=== PATIENT | male | born 1970 | race African-American/Black ===

== ENCOUNTER 2016-08-05 01:53 | Emergency (ER) | payer MEDICARE ==
--- NOTE | ~2016-08-05 | CT114 ---
[facility] A Service [facility] RADIOLOGY TEXT RESULTS PATIENT: AVI HOPPER LOCATION: [facility] : [birth year] UNIT #: [id number] AGE: [address]: Rob Chakraborty MD SEX: M ORDER DR: [id number] [address] [address] [id number] MR#: [id number] Acc #: [id number] NAME: AVI HOPPER : 1970 SEX: M STUDY DATE/TIME: 08/05/2016 6:57 UNIT: [facility] ROOM: STUDY DESCRIPTION: CT Soft Tissue Neck W Cont Attending Physician: Rob Chakraborty M.D. Ordering Physician: Yehuda Craft Aprn MEDICAL IMAGING REPORT This report is preliminary unless electronic signature is present EXAM CT neck INDICATION Bug bite on the right side of the neck. Right-sided neck swelling for [address] of the neck soft tissue utilizing 75 mL Isovue-370 IV contrast. Coronal and sagittal reconstructions were obtained. This CT exam was performed with one or more of the following radiation dose reduction techniques: automatic exposure control, adjustment of mA and/or kV according to patient size, and iterative reconstruction. COMPARISON CTA head and neck dated 01/03/2012. FINDINGS There is no inflammation in the superficial soft tissues. No significant skin thickening to correlate with the patient's clinical appearance. No pathologically enlarged cervical lymph nodes. There is a small sialolith in the right parotid gland. No parotid inflammation. Submandibular glands are within normal limits. Vasculature of the neck is within normal limits. The thyroid gland is homogeneous. There are some mild small mucous retention cysts in the inferior aspect of both maxillary sinuses. No acute osseous abnormalities. [facility] A Service [facility] RADIOLOGY TEXT RESULTS PATIENT: AVI HOPPER LOCATION: [facility] : [birth year] UNIT #: [id number] AGE: [address]: Rob Chakraborty MD SEX: M ORDER DR: IMPRESSION 1. No evidence of significant inflammation or superficial fluid collection in the region of the patient's clinical concern. 2. No enlarged cervical lymph nodes. Dictated by... Chuy Rg M.D. THIS IS AN ELECTRONICALLY VERIFIED REPORT Chuy Rg M.D. at 08/06/2016 8:01 AM Mirela TD: 08/05/2016 11:24 JOB #: [id number] MEDICAL IMAGING REPORT Page 1 of 1 COPY
[~2016-08-05 01:53] MED LIST: ACETAMINOPHEN650 M4 PO; AMARYL2 MG PO; AMITRYPTYLINE PO; AMLODIPINE BESYL5 MG PO; ANTIVERT PO; APRESOLINE10 M1 PO; ASPIRIN EC81 M1 PO; ASPIRIN PO; ASPIRIN81 M1; ASPIRIN81 M2 PO; ASPIRIN81 MG PO; AVALIDE 150-12.1 TAB PO; BP MEDS; CHEWABLE ASPIRI81 MG PO; CIPRO PO; COLACE PO; COZAAR PO; COZAAR100 MG PO; EUCERIN CREME454 GM TP; FLEXERIL PO; FLEXERIL10 MG PO; GLUCOPHAGE500 M1 PO; GLUCOPHAGE500 MG PO; HUMALOG MIX 75/10 ML SUBQ; HUMULIN 70100 UNITS/ INJ; HYDRALAZINE HCL25 MG PO; HYDRALAZINE HCL50 MG PO; HYDROCODON-ACE1 EAC5 PO; IBUPROFEN PO; ISORDIL40 MG PO; KETOPROFEN PO; LEVAQUIN750 M1 PO; LIPITOR20 MG PO; LISINOPRIL PO; LISINOPRIL20 MG PO; LOPRESSOR PO; METFORMIN HCL500 M1 PO; METFORMIN PO; METOPROLOL SUCC50 MG PO; METOPROLOL TAR25 MG PO; MILK OF MAGNESIA PO; NEURONTIN PO; NEURONTIN300 MG PO; NEURONTIN600 MG PO; NORCO 10/3251 TAB PO; NORCO 5/325 TAB1 TAB PO; NORVASC PO; ORUDIS75 M1 PO; OUT OF MEDS; PHENERGAN25 M1 PO; PREDNISONE PO; PYRIDIUM PO; ROBITUSSIN A-C S5 ML PO; ROBITUSSIN-DM120 ML PO; VICODIN PO; ZESTORETIC 20/11 TAB PO; ZOCOR PO; ZOCOR20 MG PO; [UNRECOGNIZED DRUG - REMARK]
[2016-08-05 06:16] LABS: BASOPHIL% 0.3 % (0-2.5); EOSINOPHIL# 0.5 X10e3 (0-0.7); EOSINOPHIL% 6.8 % (0.0-7.0); HEMATOCRIT 37.4 % (38.0-50.0); HEMOGLOBIN 11.9 gm/dL (13.0-16.0); LYMPHOCYTE% 38.3 % (17.0-45.0); MEAN CELL VOLUME 88.9 FL (83-96); MEAN CORPUSCULAR HEMOGLOBIN 28.2 PG (28-34); MEAN CORPUSCULAR HGB CONC 31.8 g/dL (30-36); MEAN PLATELET VOLUME 9.2 FL (6.5-11.5); MONOCYTE# 0.9 X10e3 (0-1.0); MONOCYTE% 11.4 % (3.0-12.0); NEUTROPHIL# 3.4 X10e3 (1.5-7.1); NEUTROPHIL% 43.2 % (40-75); PLATELET COUNT 206 X10e3 (140-420); RED BLOOD COUNT 4.21 X10e (3.90-5.60); RED CELL DISTRIBUTION WIDTH 12.8 % (11.0-15.5); WHITE BLOOD COUNT 7.8 X10e3 (4.0-10.5)
[2016-08-05 06:27] LABS: DIFF IND NO
[2016-08-05 06:37] LABS: ALBUMIN SERUM 3.4 g/dL (3.5-5.0); BILIRUBIN,TOTAL 0.8 mg/dL (0.2-2.0); CALCIUM SERUM 9.3 mg/dL (8.4-10.2); GLOM FILT RATE Estimated 102.7 mL/min (>60); POTASSIUM 4.1 mmol/L (3.5-5.1); PROTEIN TOTAL SERUM 8.1 g/dL (6.0-8.3)
== END 2016-08-05 08:54 | disposition home or self-care (01) ==
LOC: CED 01:53
PROVIDERS: Nurse Practitioner Family
DX: S10.96XA Insect bite of unspecified part of neck, initial encounter (principal); R59.1 Generalized enlarged lymph nodes; I10 Essential (primary) hypertension; E11.40 Type 2 diabetes mellitus with diabetic neuropathy, unspecified; Z88.8 Allergy status to other drugs, medicaments and biological substances; W57.XXXA Bitten or stung by nonvenomous insect and other nonvenomous arthropods, initial encounter; Y92.89 Other specified places as the place of occurrence of the external cause
CPT/HCPCS: 36415; 70491; 80053; 82947; 85025; 99284; Q9967

== ENCOUNTER 2016-09-14 21:57 | Inpatient (IN) | payer MEDICARE ==
--- NOTE | ~2016-09-14 | MR134 ---
[facility] A Service of [facility] RADIOLOGY TEXT RESULTS PATIENT: AVI HOPPER LOCATION: [facility] 323-01 : [birth year] UNIT #: [id number] AGE: [address]: Ambrosio Benoit MD SEX: M ORDER DR: [id number] [id number] [facility] [place] [facility]. [place], [place] [address] [id number] I MR#: [id number] Acc #: [id number] NAME: AVI HPOPER : 1970 SEX: M STUDY DATE/TIME: 09/15/2016 21:45 UNIT: [address] ROOM: [facility] STUDY DESCRIPTION: MR MRA Neck Wo Contrast Attending Physician: Ambrosio Benoit M.D. Ordering Physician: Millie Balbuena M.D. Primary Care Physician: Primary Care Physician No MRI CENTER REPORT This report is preliminary unless electronic signature is present. EXAM MRA neck INDICATION Blurred vision, headaches, slurred speech, dizziness for 2 days. FINDINGS 2-D and 3-D [id number] acquisition was used to generate angiographic images of the neck. The common carotid arteries, carotid bifurcations and internal carotid arteries have a normal appearance. The vertebral arteries are symmetric and normal in appearance. NASCET criteria was utilized. IMPRESSION Normal MRA of the neck. Dictated by... Preet Dodd M.D. THIS IS AN ELECTRONICALLY VERIFIED REPORT Preet Dodd M.D. at 09/16/2016 5:49 AM TONIA/namita TD: 09/16/2016 02:44 JOB #: [id number] MRI CENTER REPORT Page 1 of 1 COPY
--- NOTE | ~2016-09-14 | CT71 ---
[facility] A Service of [facility] RADIOLOGY TEXT RESULTS PATIENT: AVI HOPPER LOCATION: [facility] : 66 UNIT #: [id number] AGE: [address]: Ambrosio Benoit MD SEX: M ORDER DR: [id number] [id number] [place], [place] [address] [id number] I MR#: [id number] Acc #: [id number] NAME: AVI HOPPER : 1970 SEX: M STUDY DATE/TIME: 09/14/2016 22:38 [facility] ROOM: 323 STUDY DESCRIPTION: CT Head Wo Contrast Attending Physician: Ambrosio Benoit M.D. Ordering Physician: Gareth Garcia M.D. Primary Care Physician: Primary Care Physician No MEDICAL IMAGING REPORT This report is preliminary unless electronic signature is present EXAM CT scan of the head without contrast HISTORY Blurred vision right eye, headache, slurred speech, dizziness for 2 days. COMPARISON 02/25/2015 TECHNIQUE Unenhanced images were obtained through the brain. This CT exam was performed with one or more of the following radiation dose reduction techniques: automatic exposure control, adjustment of mA and/or kV according to patient size, and iterative reconstruction. FINDINGS There is encephalomalacia involving the medial posterior left cerebral hemisphere consistent with a posterior cerebral artery infarct. This measures about 3.5 cm in diameter. There is also an area of low density in the posterior left cerebellum measuring 3.5 cm in diameter consistent with old infarct. The ventricles and subarachnoid spaces are otherwise normal. These abnormalities were present on the old exam. IMPRESSION Stable areas of old ischemic change involving the left occipital lobe and left posterior cerebellum. No acute abnormalities are identified. Dictated by... Preet Dodd M.D. THIS IS AN ELECTRONICALLY VERIFIED REPORT [facility] A Service of [facility] & [facility] RADIOLOGY TEXT RESULTS PATIENT: AVI HOPPER LOCATION: [facility] : [birth year] UNIT #: [id number] AGE: [address]: Ambrsoio Benoit MD SEX: M ORDER DR: Preet Dodd M.D. at 09/15/2016 1:43 PM TONIA/joaquin TD: 09/15/2016 12:46 JOB #: [id number] MEDICAL IMAGING REPORT Page 1 of 1 COPY
--- NOTE | ~2016-09-14 | MR122 ---
[facility] A Service [facility] RADIOLOGY TEXT RESULTS PATIENT: AVI HOPPER LOCATION: [facility] 323- : [birth year] UNIT #: [id number] AGE: [address]: Ambrosio Benoit MD SEX: M ORDER DR: [id number] [address] [facility]. [place], [place] [address] [id number] I MR#: [id number] Acc #: [id number] NAME: AVI HOPPER : 1970 SEX: M STUDY DATE/TIME: 09/15/2016 21:45 UNIT: [address] ROOM: [facility] STUDY DESCRIPTION: MR MRA Head Wo Contrast Attending Physician: Ambrosio Benoit M.D. Ordering Physician: Millie Balbuena M.D. Primary Care Physician: Primary Care Physician No MRI CENTER REPORT This report is preliminary unless electronic signature is present. EXAM MRA of the brain INDICATION Blurred vision in the right eye with headache, slurred speech and dizziness for 2 days. 3-D [id number]-si-[id number] was used to generate angiographic images of the brain. FINDINGS The distal vertebral arteries and basilar artery appear normal. The right posterior cerebral artery appears normal. On the left side, there is a prominent superior cerebellar artery which appears to have multiple areas of stenosis and there are some distal stenoses in the posterior cerebral artery. The MRI today shows old ischemic change in the left occipital region and left cerebellum. The distal internal carotid arteries, middle cerebral arteries and anterior cerebral arteries are normal in appearance except for an absence A1 signal on the right. An anterior communicating artery is present. IMPRESSION 1. There appear to be multiple stenoses in the left posterior cerebral artery and left superior cerebellar artery which corresponds with areas of old ischemic change seen on MRI. 2. The anterior circulation is unremarkable. Dictated by... Preet Dodd M.D. THIS IS AN ELECTRONICALLY VERIFIED REPORT Preet Dodd M.D. at 09/16/2016 5:49 AM TONIA/namita [facility] A Service [facility] RADIOLOGY TEXT RESULTS PATIENT: AVI HOPPER LOCATION: [facility] 323-01 : [birth year] UNIT #: [id number] AGE: [address]: Ambrosio Benoit MD SEX: M ORDER DR: TD: 09/16/2016 02:37 JOB #: [id number] MRI CENTER REPORT Page 1 of 1 COPY
--- NOTE | ~2016-09-14 | EKG ---
PATIENT: AVI HOPPER UNIT #: [id number] Ventricular Rate: 76 BPM Atrial Rate: 76 BPM P-R Interval: 156 ms QRS Duration: 92 ms Q-T Interval: 422 ms QTC Calculation(Bezet): 474 ms P [place]: 57 degrees Calculated R Houston: -12 degrees Calculated T [place]: -43 degrees Diagnosis Line: Normal sinus rhythm Diagnosis Line: ST and T wave abnormality, consider inferior Diagnosis Line: ischemia Diagnosis Line: Prolonged QT Diagnosis Line: Abnormal ECG Diagnosis Line: When compared with ECG of 15-SEP-2016 03:05, Diagnosis Line: No significant change was found Diagnosis Line: Confirmed by TRISH PRESSLEY MD ([id number]) on 09/15/2016 Diagnosis Line: 6:22:29 PM INTERPRETING MD: WENDIE BATES
--- NOTE | ~2016-09-14 | MR18 ---
[facility] A Service of [facility] & [facility] RADIOLOGY TEXT RESULTS PATIENT: AVI HOPPER LOCATION: [facility] 323-01 : [birth year] UNIT #: [id number] AGE: [address]: Ambrosio Benoit MD SEX: M ORDER DR: [id number] [facility] [address] [facility]. [place], [place] [address] [id number] I MR#: [id number] Acc #: [id number] NAME: AVI HOPPER : 1970 SEX: M STUDY DATE/TIME: 09/15/2016 21:45 UNIT: A U ROOM: 323 STUDY DESCRIPTION: MR Brain Wo Contrast Attending Physician: Ambrosio Benoit M.D. Ordering Physician: Millie Balbuena M.D. Primary Care Physician: Primary Care Physician No MRI CENTER REPORT This report is preliminary unless electronic signature is present. EXAM MRI of the brain without contrast dated 09/15/2016. COMPARISON MRI of the brain without contrast dated 06/23/2013. HISTORY Blurred vision in the right eye, headache, slurred speech, dizziness for 2 days. FINDINGS Multisequence, multiplanar imaging of the brain was obtained without contrast. No acute stroke, space-occupying intracranial mass, mass effect, midline shift or hydrocephalus. Patchy hyperintense T2-signal lesions are noted in the medial left parietooccipital cortex and adjacent subcortical white matter and left inferior and posterior cerebellar hemisphere. Stable in the last 3 years. No superimposed acute abnormality. Minimal hyperintense T2-signal lesions in the periventricular white matter particularly around the atrium of the lateral ventricle. Stable. Thick slices through the sella with the pituitary gland, pineal region and upper cervical spine are within normal limits. Paranasal sinuses demonstrate nodular mucosal thickening in bilateral maxillary antra, with nasal septal deviation to the right in the posterior aspect. There is loss of normal shape, size and signal of the left globe, new since the prior study. IMPRESSION 1. No acute intracranial abnormality. 2. Encephalomalacic changes and gliosis are noted in the left parietooccipital cortex and subcortical white matter along the medial aspect and in the left cerebellar hemisphere. It is likely related to old insults, probably chronic ischemic insults. 3. Interval new abnormality involving the left globe of the eye. It has STS. [facility] A Service of [facility] RADIOLOGY TEXT RESULTS PATIENT: AVI HOPPER LOCATION: [facility] 323-01 : [birth year] UNIT #: [id number] AGE: [address]: Ambrosio Benoit MD SEX: M ORDER DR: lost its normal signal and shape. There is probably no vision in this eye. Correlate clinically. Globe of the right eye and the right ocular structures are intact. 4. Nodular mucosal thickening are in bilateral maxillary antral floor, likely related to mucous retention cysts or polyps, relatively stable. Dictated by... Benita Francis M.D. THIS IS AN ELECTRONICALLY VERIFIED REPORT Benita Francis M.D. at 09/16/2016 11:36 AM CPR/psc TD: 09/16/2016 02:28 JOB #: [id number] MRI CENTER REPORT Page 1 of 1 COPY
--- NOTE | ~2016-09-14 | HP ---
Unit #: [id number] #: [id number] Patient: AVI HOPPER [id number] [facility]. [place], [place] [address] [id number] I MR#: [id number] NAME: AVI HOPPER ROOM: 323 Age: 46 Sex: M Admission Date: 09/15/2016 : 1970 Attending Physician: Millie Balbuena M.D. Primary Care Physician: No Primary Care Physician HISTORY AND PHYSICAL CHIEF COMPLAINT Visual changes, expressive aphasia, right leg numbness. 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 The patient was admitted to [facility] 09/13/2010 through 09/14/2010 for chest pain. A CTA was negative for PE. His blood pressure was noted to be quite elevated. He underwent a Cardiolite stress test which was negative for ischemia, ejection fraction 48%. He states that last evening he developed blurred vision in his right eye, right-sided headache with right leg numbness and expressive aphasia. He presented to this emergency department at 10 p.m. with a blood pressure of 108/66, heart rate 74. Head CT only shows old CVAs. Labs are notable for acute kidney injury. The patient was bloused a liter of saline, given Zofran for nausea and vomiting and aspirin. The patient does have a history of previous CVAs, but has been noncompliant with his aspirin. Currently he continues to have blurred vision on the right and speech is improved. The patient was admitted 12/2011 for accelerated hypertension and left occipital lo be infarct. He was readmitted 06/2013 for ischemic CVA, left cerebral peduncle. PAST MEDICAL HISTORY 1. 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 2. Cardiac catheterization 03/2010, revealing a mid LAD 50%-60% stenosis and irregularities of other vessels. His last nuclear stress test was performed at [facility] yesterday, which was negative for ischemia. Ejection fraction was noted to be about 40%. Previous HUMPHREY revealed an ejection fraction of 45% with mild MR, TR. 3. Essential hypertension. 4. Hyperlipidemia. 5. 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 He lives with his , lifelong nonsmoker and does not drink alcohol. FAMILY HISTORY CVA, CAD, diabetes mellitus and malignancy. ALLERGIES Unit #: [id number] #: [id number] Patient: AVI HOPPER ESTEPHANIE inhibitor causing cough, oxycodone, and methadone. HOME MEDICATIONS From the best I can determine, 1. Allopurinol 300 mg daily. 2. Elavil 75 mg at nighttime. 3. Norvasc 10 mg daily. 4. The patient was written a prescription for clonidine 0.3 mg tablets, 2 tablets at nighttime, which he did not yet start. 5. Combigan eyedrops. 6. Voltaren 75 mg b.i.d. 7. Neurontin 600 mg 2 tablets in the morning and 3-4 tablets at bedtime. 8. Amaryl 4 mg b.i.d. with meals. 9. Lockwood 10/325 mg q.6 h. p.r.n. pain. 10. Lantus 10 units subcutaneous b.i.d. 11. Metformin 1000 mg b.i.d. 12. Lopressor 100 mg b.i.d. REVIEW OF SYSTEMS Headache, blurred vision, Obstructive sleep apnea, expressive aphasia, right-sided numbness, diabetes, neuropathy, nonobstructive CAD, hypertension, hyperlipidemia, blind left eye, retinopathy, the above mentioned surgeries. All other systems were reviewed and are otherwise negative. PHYSICAL EXAMINATION GENERAL: Pleasant, obese, 46-year-old male currently in no acute distress. VITALS: Temperature 98, pulse 74, respiratory rate 18, blood pressure 108/66, O2 saturations 96% on room air. HEENT: The patient has left-sided ptosis and cataract left eye with visual loss on the left. Extraocular muscles are otherwise intact. Pharynx is benign. NECK: Supple without adenopathy or thyromegaly. CHEST: Clear. HEART: Normal S1 and S2 without S3, S4 or murmur. ABDOMEN: Bowel sounds are present. No hepatosplenomegaly or masses. EXTREMITIES: Without cyanosis, clubbing or edema. Pedal pulses are present but diminished. No ulcers on the feet. NEUROLOGIC: The patient is awake, alert, oriented. His cranial nerves are intact except that he is blind in the left eye and has left ptosis. He has 4/5 strength right leg. Negative pronator drift. Normal finger to nose. Speech is fluent. DIAGNOSTIC STUDIES IMAGING: Head CT stable, old ischemic CVAs, occipital lobe, posterior cerebellum. Chest x-ray no acute disease. LABORATORY: On admission, hematocrit 40.3, normal white count, platelet count and coags. SMA12, glucose 135, creatinine 2.1 (up from 1 in July), sodium 133, potassium 3.3, chloride 99, protein 9, AST 45, ALT 41, cardiac markers negative. CARDIOVASCULAR: EKG sinus rhythm, rate 95, with Q wave abnormalities noted inferiorly and in V6. Unit #: [id number] #: [id number] Patient: AVI HOPPER ASSESSMENT 1. Right eye blurred vision with expressive aphasia. Right leg numbness, now improved. Rule out TIA versus small CVA. 2. Acute kidney injury, likely contrast nephropathy. The patient had a CTA of his chest two days ago. 3. Prior CVA, not taking aspirin. 4. Hypertension. 5. AODM. 6. Blind left eye. 7. Nonobstructive CAD, ejection fraction about 40%-45% with negative Cardiolite stress test yesterday at [facility]. 8. Obstructive sleep apnea. 9. Peripheral neuropathy. PLAN 1. Aspirin. 2. MRI/MRA of the brain. Neurology to see. 3. IV fluids, avoid nephrotoxic medications, decrease Neurontin. Will check a urinalysis and postvoid bladder scan. 4. SCDs for DVT prophylaxis. 5. Repeat cardiac enzymes and repeat labs this morning. Dictated by Radha Winkler/tabitha TD: 09/15/2016 07:24 JOB #: [id number] CC: Marya Hoover M.D. HISTORY AND PHYSICAL Page 1 of 1 X Millie Balbuena MD HISTORY AND PHYSICAL
--- NOTE | ~2016-09-14 | CO ---
Unit #: [id number] #: [id number] Patient: AVI HOPPER [id number] [facility] [address] [place] [place], [place] [address] [id number] MR#: [id number] NAME: AVI HOPPER ROOM: 323 Age: 46 Sex: M Admission Date: 09/15/2016 : 1970 Attending Physician: Ambrosio Benoit M.D. Primary Care Physician: Primary Care Physician No Consultation Date: 09/15/2016 CONSULTATION REPORT PRIMARY CARE PHYSICIAN Not known. REASON FOR CONSULTATION Right-sided vision changes and ataxia. PATIENT IDENTIFICATION This is a 46-year-old right-handed male, who is evaluated in room 323 at [facility]. SOURCE OF INFORMATION The patient and his family and previous records and very detailed evaluation done by Dr. Balbuena and other consultants in the past and we have seen him several times in the past. PROBLEM LIST 1. Prior strokes. He has had left BISQUE FINISHER infarct. He has had other small infarcts. He has adult onset diabetes mellitus. 2. He has likely the coronary artery stenosis, suboptimal EF. 3. Hypertension. 4. Hyperlipidemia. 5. Retinopathy, left eye. He is now blind in the left eye. Apparently, he coded on the table during laser surgery. 6. One of the biggest concern I have with him is noncompliance. He is not even take any aspirin. 7. He has history of chest pain and accelerated hypertension. HISTORY OF PRESENT ILLNESS This is a 46-year-old gentleman, who is actually well known to me as I have seen him in the past several times and he presented with vision changes and some word-finding difficulty and right leg numbness. This happened almost 24 hours before he came in, so again that issue of noncompliance really plays very highly in this gentleman's case. He sees Dr. Rosario, but he is not on any aspirin anymore and that is exactly what we documented in 2013 when he came in, also he was sent to Dr. Brink and I am not sure he did anything or he did have a followup or other loop recorder type evaluation. Nonetheless, he comes in and he is doing much better. He has some right-sided symptoms, some ataxia, but he is much better. CT showed old stroke in the left BISQUE FINISHER, but MRI is pending. It will depend upon what the MRI shows as to what direction to take, but he is not failed conventional therapies. Stroke workup was initiated. He is clinically doing much better. He does have some migraines also. Unit #: [id number] #: [id number] Patient: AVI HOPPER No seizures. No other issues. PAST MEDICAL HISTORY As discussed above. PAST SURGICAL HISTORY Nothing major. ALLERGIES ESTEPHANIE inhibitors cause cough, oxycodone and methadone. HOME MEDICATIONS Allopurinol 300 mg daily; Elavil 75 mg at nighttime; Norvasc 10 mg; clonidine 0.3 mg, but I do not think he is taking; Combigan eyedrops; Voltaren 75 mg b.i.d.; Neurontin 600 mg two tablets in the morning and 3 to 4 tablets at bedtime; Amaryl 4 mg b.i.d. with meals; [place] 10/325 q.6 hours p.r.n.; Lantus; metformin; Lopressor. FAMILY HISTORY Coronary artery disease, stroke, diabetes mellitus, malignancy. 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 He lives with his . Lifelong nonsmoker. Does not drink. REVIEW OF SYSTEMS Mostly as discussed in his present illness. CONSTITUTIONAL: He denies any recent weight issues, fever, chills, rigor, or sweats. He denies any sleep issues. HEENT: Mild headaches and right-sided blurred vision. NECK: No neck problems. CARDIOVASCULAR: No chest pain, clubbing, cyanosis, orthopnea, or palpitation. PULMONARY: No shortness of air, cough, or expectoration. GASTROINTESTINAL: No nausea, vomiting, diarrhea, or constipation. GENITOURINARY: No genitourinary symptoms. EXTREMITIES: No extremity problems. BACK: No back problems. PSYCHIATRIC: No psychotic issue. NEUROLOGIC: Prior stroke. He is diabetic. He has hyperlipidemia. No other hematologic, dermatological, or endocrine problem. PHYSICAL EXAMINATION VITAL SIGNS: Temperature 97.7, pulse is 80, respirations 18, blood pressure right now was 155/88. No pain was reported. O2 saturations were 95% to 98%. Weight of 271 pounds. BMI was 37. His blood pressure has been anywhere from 108 systolic to 170 systolic and from 66 diastolic to 100 diastolic. NEUROLOGIC: The patient is awake. He is alert. He is oriented. He can name and he can follow commands. No right or left confusion. No finger agnosia. Cranial examination demonstrates he has no vision in the left eye. He Unit #: [id number] #: [id number] Patient: AVI HOPPER also has what looks like opacification behind the iris, lens, versus vitreous. On the right side, he has right superior and inferior temporal field cut probably part of the right homonymous hemianopia from left BISQUE FINISHER stroke, but of course, the left eye is now damaged. Pupils are sluggishly reactive on the right side about 2.5 mm. Eye movements otherwise conjugate. He has some ptosis on the left side. I did not see any facial asymmetry. Hearing seemed to be intact. Tongue was midline. I could not visualize his oropharynx or uvula. Head turning was spontaneous. Motor examination demonstrated normal bulk and tone. Strength was 5-/5 all over. Sensory examination intact for soft touch and pain sensation. No extinction was seen. Romberg was not evaluated. Gait examination was deferred. Questionable ataxia on the right side. I could not get any reflexes. Toes are equivocal. DIAGNOSTIC STUDIES IMAGING STUDIES: CT was reviewed. LABORATORY RESULTS: His random glucose was 164; creatinine was 1.6, it was 2.1 yesterday; sodium was 133 to 134; potassium was 3.3. AST was 45, ALT was 41. Previously, B12 was 348. White count is 8.6, H and H were 13.2 and 40.3, platelet count was 238. IMPRESSION Nonspecific symptoms, my biggest concern is that he took him almost 24 hours to come to the hospital. Also, he is not taking aspirin. He has all the risk factors. He has prior strokes. I am going to try to find out whether he did have his cardiovascular evaluation. It does not look like that has happened. I will check his MRI if it shows stroke. I will definitely want him to continue the aspirin and Lipitor and we will go from there. I will decide after that MRI what else to be done. I do recommend that he goes back to Dr. Brink or any vocational examiner to consider loop recorder or monitoring to make sure there is no dysrhythmia, compliance, resume aspirin at 325 right now, resume Lipitor at 40 right now. Why is his blood pressure all up and down like this? Those issues need to be addressed and I will follow him. I talked to his family already. He has already has a neurologist established. Call me for any other questions, issues, or concerns. Dictated by... Awilda Batista M.D. JOSSY/zachary TD: 09/16/2016 11:55 JOB #: [id number] Unit #: [id number] #: [id number] Patient: AVI HOPPER CONSULTATION REPORT Page 1 of 1 X Awilda Batista MD X CONSULTATION REPORT
--- NOTE | ~2016-09-14 | DS ---
Unit #: [id number] #: [id number] Patient: AVI HOPPER [id number] [address] [address] [id number] I MR#: [id number] NAME: AVI HOPPER ROOM: 323 Age: 46 Sex: M Admission Date: 09/15/2016 : 1970 Discharge Date: 09/16/2016 Attending Physician: Ambrosio Benoit M.D. Primary Care Physician: No Primary Care Physician DISCHARGE SUMMARY PRIMARY DIAGNOSIS Toxic encephalopathy secondary to uncontrolled diabetes. Please see below. SECONDARY DIAGNOSES 1. Dehydration. 2. Severe hyperglycemia secondary to noncompliance with medications. 3. Neurontin toxicity. 4. Acute kidney injury. 5. History of old stroke with posterior cerebral circulation stenoses; noncompliant with aspirin. 6. Nonspecific neurologic symptoms, likely related to medication effects in association with decreased kidney function. 7. 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 8. Nonobstructive coronary artery disease with ejection fraction of 45% with a recent negative Cardiolite. 9. Obstructive sleep apnea. HOSPITAL COURSE The patient was admitted to the hospital with right eye blurriness. Had been to [facility] last week with negative Cardiolite. He presented with an elevated creatinine that improved back to normal with hydration. He has been filling prescriptions for insulin 70/30 at [facility], but it does not appear that he has been using it consistently. His hemoglobin A1C was 12.5. It appears that with his noncompliance with his insulin, his blood sugars got overly elevated, which resulted in secondary dehydration from osmotic diuresis, which then resulted in acute kidney injury, which then resulted in toxic levels of his medications; primarily, most concerning were probably his gabapentin and amitriptyline but with his kidneys having improved. Consultants included Dr. Batista with neurology. Imaging included MRI of the head, MR angiogram of the head and neck. DISCHARGE DISPOSITION To home. DISCHARGE STATUS Stable. DISCHARGE ACTIVITY Ad daquan with wheeled walker at all times. DISCHARGE DIET Strict diabetic diet. Unit #: [id number] #: [id number] Patient: AVI HOPPER FOLLOWUP With his primary care physician, Dr. Marya Hoover, in 1-9 days. DISCHARGE MEDICATIONS 1. Lantus SoloSTAR 40 units subcu q.h.s. 2. NovoLog pen 20 units subcu a.c. meals. 3. Aspirin 325 mg daily. 4. Allopurinol, he is to resume his home dose, 1 tablet p.o. daily. 5. Losartan, he can resume his home dose, 1 tablet p.o. daily. 6. Hydralazine 100 mg p.o. t.i.d. 7. Lipitor, he can resume his home dose. He should be on at least 40 mg daily, if not 80, for his history of stroke. 8. Metoprolol tartrate, he can resume his home dose, 1 tablet p.o. b.i.d. 9. Amlodipine 10 mg p.o. daily. 10. Glucophage 1,000 mg p.o. b.i.d. 11. Amitriptyline, he can resume his home dose, 1 tablet p.o. daily. 12. Gabapentin, he can resume his home dose, 1 tablet q.i.d. Dictated by... Ambrosio Benoit M.D. MONIKA/nito TD: 09/17/2016 15:49 JOB #: [id number] DISCHARGE SUMMARY Page 1 of 1 X Ambrosio Benoit MD X DISCHARGE SUMMARY
--- NOTE | ~2016-09-14 | EKG ---
PATIENT: AVI HOPPER UNIT #: [id number] Ventricular Rate: 95 BPM Atrial Rate: 95 BPM P-R Interval: 130 ms QRS Duration: 96 ms Q-T Interval: 396 ms QTC Calculation(Bezet): 497 ms P Parrish: 60 degrees Calculated R Parrish: -17 degrees Calculated T Parrish: -64 degrees Diagnosis Line: Normal sinus rhythm Diagnosis Line: Minimal voltage criteria for LVH, may be normal Diagnosis Line: variant Diagnosis Line: Marked ST abnormality, possible inferior Diagnosis Line: subendocardial injury Diagnosis Line: Prolonged QT Diagnosis Line: Abnormal ECG Diagnosis Line: When compared with ECG of 30-MAR-2016 23:09, Diagnosis Line: No significant change was found Diagnosis Line: Confirmed by JACEY POSADAS MD ([id number]) on Diagnosis Line: 09/15/2016 11:09:10 AM INTERPRETING MD: KATHARINA BATES
--- NOTE | ~2016-09-14 | CR72 ---
[facility] A Service of [facility] RADIOLOGY TEXT RESULTS PATIENT: AVI HOPPER LOCATION: [facility] : [birth year] UNIT #: [id number] AGE: [address]: Ambrosio Benoit MD SEX: M ORDER DR: [id number] [address] [address] [id number] I MR#: [id number] Acc #: [id number] NAME: AVI HOPPER : 1970 SEX: M STUDY DATE/TIME: 09/15/2016 1:20 UNIT: [address] ROOM: [address] [place] [address] DESCRIPTION: CR Chest Single View Portable Attending Physician: Ambrosio Benoit M.D. Ordering Physician: Gareth Garcia M.D. Primary Care Physician: No Primary Care Physician MEDICAL IMAGING REPORT This report is preliminary unless electronic signature is present EXAM Portable chest. HISTORY Dizziness and shortness of air for 2 days. TECHNIQUE A portable view of the chest is obtained. The heart size and vascularity are normal. The lungs are clear. COMPARISON STUDIES 03/31/16. FINDINGS The bones are unremarkable. IMPRESSION No active disease. Dictated by... Preet Dodd M.D. THIS IS AN ELECTRONICALLY VERIFIED REPORT Preet Dodd M.D. at 09/15/2016 1:42 PM FEL/tena TD: 09/15/2016 13:28 JOB #: [id number] [facility] A Service of [facility] RADIOLOGY TEXT RESULTS PATIENT: AVI HOPPER LOCATION: [facility] : [birth year] UNIT #: [id number] AGE: [address]: Ambrosio Benoit MD SEX: M ORDER DR: MEDICAL IMAGING REPORT Page 1 of 1 COPY
--- NOTE | ~2016-09-14 | A ---
[facility] Nutrition Therapy DATE: 09/16/16 Patient: AVI HOPPER Physician: IRINEO Address: [address] [place] [address] Room/Bed: [address] [place] [address], Zip: [place] [address] Admit Date: 09/15/16 Date of : [birth year] Height: 5 11 Weight: 271 123 NUTRITIONAL ASSESSMENT: REASON: Consult RE: Stroke protocol 46 yo male admitted for R/O stroke PMH: DM, HTN, HLD, h/o CVA Anthropometrics: Ht: 5'11" Adm wt: 123 kg BMI: 37.8 Diet: Consistent carbohydrate Assessment: Chart reviewed, events noted. Pt admitted for R/O CVA. PMH noted above. RD spoke with the pt at bedside regarding his dietary habits. Pt admits that he does not eat frequently throughout the day, and typically only consumes one large meal. RD stressed the importance of meal and carbohydrate consistency, providing heart healthy/ consistent carbohydrate diet education. Pt voiced understanding and demonstrated motivation to make change to his diet. RD provided printed materials and encouraged the pt to contact RD with any questions. Recommendations: 1. Pt would benefit from seeing an outpatient RD for follow up diet education and accountability. 2. Add heart healthy to the pt's diet order if he remains in the hospital. Consult RD for any further nutritional needs. Respectfully, VERITO AMOS RD, LD Food and Nutritional Services [facility] cc: client file
[2016-09-15 01:18] LABS: BASOPHIL# 0.1 X10e3 (0-0.3); BASOPHIL% 0.7 % (0-2.5); EOSINOPHIL# 0.1 X10e3 (0-0.7); EOSINOPHIL% 1.3 % (0.0-7.0); HEMATOCRIT 40.3 % (38.0-50.0); HEMOGLOBIN 13.2 gm/dL (13.0-16.0); LYMPHOCYTE# 2.2 X10e3 (1.0-3.5); LYMPHOCYTE% 26.1 % (17.0-45.0); MEAN CORPUSCULAR HEMOGLOBIN 28.5 PG (28-34); MEAN CORPUSCULAR HGB CONC 32.7 g/dL (30-36); MEAN PLATELET VOLUME 9.9 FL (6.5-11.5); MONOCYTE# 0.7 X10e3 (0-1.0); MONOCYTE% 8.3 % (3.0-12.0); NEUTROPHIL# 5.5 X10e3 (1.5-7.1); NEUTROPHIL% 63.6 % (40-75); PLATELET COUNT 238 X10e3 (140-420); RED BLOOD COUNT 4.63 X10e (3.90-5.60); RED CELL DISTRIBUTION WIDTH 12.5 % (11.0-15.5); WHITE BLOOD COUNT 8.6 X10e3 (4.0-10.5)
[2016-09-15 01:19] LABS: DIFF IND NO
[2016-09-15 01:37] LABS: POC - CKMB 2.2 ng/mL (0.0-7.9); POC - TROPONIN <0.05 ng/mL (<=0.05)
[2016-09-15 01:49] LABS: ALBUMIN SERUM 3.9 g/dL (3.5-5.0); BILIRUBIN, DIRECT 0.1 mg/dL (0.0-0.2); BILIRUBIN,INDIRECT 0.9 mg/dL (0.0-0.9); CALCIUM SERUM 9.3 mg/dL (8.4-10.2); CREATININE SERUM 2.1 mg/dL (0.6-1.4); GLOM FILT RATE Estimated 41.9 mL/min (>60); POTASSIUM 3.3 mmol/L (3.5-5.1)
[2016-09-15 02:36] LABS: PARTIAL THROMBOPLASTIN TIME 23.7 SECONDS (23.5-31.3); PROTHROMBIN TIME (PATIENT) 11.2 SECONDS (10.0-11.7)
[2016-09-15 05:15] LABS: URINE SOURCE CLEAN CATCH
[2016-09-15 06:07] LABS: URINE APPEARANCE CLEAR; URINE BILIRUBIN NEG (NEG); URINE BLOOD TRACE (NEG); URINE COLOR YELLOW; URINE GLUCOSE >1000 MG/DL (NEG); URINE KETONE TRACE (NEG); URINE LEUKOCYTE ESTERASE NEG (NEG); URINE NITRATE NEG (NEG); URINE PROTEIN 3+ (NEG); URINE UROBILINOGEN 0.2 MG/DL (NEG)
[2016-09-15 06:09] LABS: URINE BACTERIA AUWI NEG (NEGATIVE); URINE SQUAMOUS EPITHELIAL CELL OCC /[HPF]
[2016-09-15 06:29] LABS: U HYALINE CASTS AUWI 25-50 /[LPF]
[2016-09-15 06:31] LABS: CULTURE INDICATED? NO
[2016-09-15] MEDS ORDERED: GLIMEPIRIDE2 MG PO (06:49)
[2016-09-15] MEDS ORDERED: LOSARTAN POTAS100 MG PO (06:50)
[2016-09-15] MEDS ORDERED: GABAPENTIN600 MG PO (06:50)
[2016-09-15] MEDS ORDERED: HYDRALAZINE HC100 MG PO (06:51)
[2016-09-15] MEDS ORDERED: ALLOPURINOL300 MG PO (06:52)
[2016-09-15] MEDS ORDERED: LIPITOR40 MG PO (06:52)
[2016-09-15] MEDS ORDERED: METFORMIN PO (06:53)
[2016-09-15] MEDS ORDERED: METOPROLOL TAR100 MG PO (06:54)
[2016-09-15] MEDS ORDERED: AMITRIPTYLINE H75 MG PO (06:54)
[2016-09-15 07:55] LABS: BUN/CREATININE RATIO 12.5; CALCIUM SERUM 8.5 mg/dL (8.4-10.2); CREATININE SERUM 1.6 mg/dL (0.6-1.4); GLOM FILT RATE Estimated 58.2 mL/min (>60); POTASSIUM 3.3 mmol/L (3.5-5.1)
[2016-09-15 08:15] LABS: %MB 1.6 % (0.0-4.0)
[2016-09-15 16:54] LABS: HEMATOCRIT 37.6 % (38.0-50.0); MEAN CELL VOLUME 88.7 FL (83-96); MEAN CORPUSCULAR HEMOGLOBIN 28.2 PG (28-34); MEAN CORPUSCULAR HGB CONC 31.8 g/dL (30-36); RED BLOOD COUNT 4.24 X10e (3.90-5.60); RED CELL DISTRIBUTION WIDTH 12.4 % (11.0-15.5); WHITE BLOOD COUNT 7.3 X10e3 (4.0-10.5)
[2016-09-15 17:09] LABS: PARTIAL THROMBOPLASTIN TIME 24.5 SECONDS (23.5-31.3); PROTHROMBIN TIME (PATIENT) 10.7 SECONDS (10.0-11.7)
[2016-09-15 17:29] LABS: ALBUMIN SERUM 3.1 g/dL (3.5-5.0); BILIRUBIN,TOTAL 0.5 mg/dL (0.2-2.0); CALCIUM SERUM 8.6 mg/dL (8.4-10.2); CREATININE SERUM 1.5 mg/dL (0.6-1.4); GLOM FILT RATE Estimated 62.9 mL/min (>60); POTASSIUM 3.7 mmol/L (3.5-5.1); PROTEIN TOTAL SERUM 7.7 g/dL (6.0-8.3)
[2016-09-15 17:47] LABS: %MB 1.6 % (0.0-4.0); MB 2.2 ng/ml
[2016-09-15 18:14] LABS: FOLATE (FOLIC ACID) 11.4 ng/mL (>5.8)
[2016-09-16 00:45] LABS: URINE APPEARANCE CLEAR; URINE BILIRUBIN NEG (NEG); URINE BLOOD NEG (NEG); URINE COLOR YELLOW; URINE GLUCOSE >1000 MG/DL (NEG); URINE KETONE NEG (NEG); URINE LEUKOCYTE ESTERASE NEG (NEG); URINE NITRATE NEG (NEG); URINE PROTEIN 1+ (NEG); URINE UROBILINOGEN 0.2 MG/DL (NEG)
[2016-09-16 00:48] LABS: URBCS1 AUWI 0-2 /[HPF] (0-2); URINE BACTERIA AUWI NEG (NEGATIVE); URINE SQUAMOUS EPITHELIAL CELL NONE SEEN /[HPF]; UWBCS1 AUWI 0-2 (0-5)
[2016-09-16 06:39] LABS: BUN/CREATININE RATIO 16.36; CALCIUM SERUM 9.1 mg/dL (8.4-10.2); CREATININE SERUM 1.1 mg/dL (0.6-1.4); GLOM FILT RATE Estimated 91.5 mL/min (>60); MAGNESIUM 2.1 mg/dL (1.6-3.0); POTASSIUM 3.9 mmol/L (3.5-5.1)
[2016-09-16] MEDS ORDERED: AMLODIPINE BESY10 MG PO (13:37)
[2016-09-16] MEDS ORDERED: HYDRALAZINE HC100 MG PO (13:38)
[2016-09-16] MEDS ORDERED: BAYER ASPIRIN325 M1 PO (13:38)
[2016-09-16] MEDS ORDERED: LANTUS SOL100 UNIT/1 SUBQ (13:43)
[2016-09-16] MEDS ORDERED: NOVOLOG FL100 UNIT/1 SUBQ (13:44)
== END 2016-09-16 15:59 | disposition home or self-care (01) | DRG 637 ==
LOC: CED 21:57 → CEDOF 09-15 04:24 → C3A PCU 09-15 05:28 → CEDOF 09-15 05:28 → C3A PCU 09-15 05:28
PROVIDERS: Emergency Medicine; Internal Medicine
DX: E11.65 Type 2 diabetes mellitus with hyperglycemia (principal); G92 Toxic encephalopathy; N17.9 Acute kidney failure, unspecified; E11.42 Type 2 diabetes mellitus with diabetic polyneuropathy; R47.01 Aphasia; R20.0 Anesthesia of skin; I10 Essential (primary) hypertension; E78.5 Hyperlipidemia, unspecified; E11.319 Type 2 diabetes mellitus with unspecified diabetic retinopathy without macular edema; H53.8 Other visual disturbances; N14.1 Nephropathy induced by other drugs, medicaments and biological substances; T50.8X5A Adverse effect of diagnostic agents, initial encounter; I25.10 Atherosclerotic heart disease of native coronary artery without angina pectoris; G47.33 Obstructive sleep apnea (adult) (pediatric); Z91.14 Patient's other noncompliance with medication regimen; E86.0 Dehydration; Z79.4 Long term (current) use of insulin
CPT/HCPCS: 36415; 70450; 70544; 70547; 70551; 71010; 80048; 80053; 80061; 80076; 81003; 82550; 82553; 82607; 82746; 82947; 83036; 83735; 84484; 85025; 85027; 85610; 85730; 86140; 87086; 92523-GN; 92610; 93005; 97110; 97116; 97163; 97166; 97535; 99285; G8978-GP; G8979-GP; G8987-GO; G8988-GO; G8999-GN; G9186-GN; J1815; J2405

== ENCOUNTER 2016-09-20 16:18 | Inpatient (IN) | payer MEDICARE ==
[~2016-09-20] VITALS: Ht 180.3 cm; Wt 127.7 kg
--- NOTE | ~2016-09-20 | HP ---
Unit #: [id number] #: [id number] Patient: AVI HOPPER [id number] [address] [address] [id number] I MR#: [id number] NAME: AVI HOPPER ROOM: 91647 Age: 46 Sex: M Admission Date: 09/20/2016 : 1970 Attending Physician: Rebekah Marie M.D. HISTORY AND PHYSICAL CHIEF COMPLAINT Right groin abscess with pain and swelling in the right groin. HISTORY OF PRESENT ILLNESS This is a 46-year-old gentleman with a history of insulin-dependent diabetes with hyperglycemia secondary to noncompliance, history of old stroke with posterior cerebral circulation stenosis, blind in the left eye, nonobstructive coronary artery disease, obstructive sleep apnea, dyslipidemia, and hypertension, who was also admitted here in the hospital on September 15, 2016, and discharged on September 16. He was admitted with right eye blurriness. At that time, he was also found to have acute kidney injury, Neurontin toxicity, and severe hyperglycemia secondary to noncompliance. His A1c was 12.7. His symptoms were nonspecific neurological symptoms likely related to medication effect and associated with decreased kidney function. He was also evaluated by Neurology, and eventually patient was discharged home. He was diagnosed also with toxic metabolic encephalopathy. He also had workup with MRI of the head and MR angiogram of the head and neck at that time. He said that on discharge from the hospital he had some redness and swelling in the right groin, but it got progressively worse. He called the primary doctor. He went to see him, and he was given some Bactrim DS which he took for three days but it did not improve. The swelling got worse, and he came to the ER and was found to have a big groin abscess. He underwent I and D with packing in the emergency room. His white count was elevated at 17,000 and was eventually admitted. PAST MEDICAL HISTORY 1. Insulin-dependent diabetes with diabetic peripheral neuropathy. 2. Hyperglycemia secondary to noncompliance with A1c of 12.1 on recent admission one week ago. 3. Cardiac catheterization in 2010 revealing mid LAD 50-60% stenosis and irregularities of other vessels. He had a nuclear test performed at [facility] on September 13, 2016, which was negative. Ejection fraction was 40%. He had a previous HUMPHREY which showed an ejection fraction of 40% with mild MR and TR. 4. Hypertension. 5. Hyperlipidemia. 6. Retinopathy of the left eye. Now patient is blind. 7. Old stroke with posterior cerebral circulation stenosis, status post left posterior cerebral circulation infarct. 8. Obstructive sleep apnea. PAST SURGICAL HISTORY Unit #: [id number] #: [id number] Patient: AVI HOPPER Cardiac cath. 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 He lives with his . He is a lifelong nonsmoker, does not drink alcohol, and no other illicit drug use. FAMILY HISTORY Coronary artery disease, CVA, diabetes mellitus, and malignancy in the family. ALLERGIES ESTEPHANIE inhibitors, oxycodone, methadone, and Percocet. HOME MEDICATIONS 1. Losartan. He does not know the dose. Will confirm with the pharmacy in the morning. 2. Gabapentin 600 mg twice daily. 3. Allopurinol 300 mg daily. 4. Lipitor 40 mg daily. 5. Glucophage 1 g b.i.d. 6. Metoprolol 100 mg 1 tablet b.i.d. 7. Amitriptyline 75 mg at bedtime. 8. Amlodipine 10 mg daily. 9. Hydralazine 100 mg 3 times daily. 10. Aspirin 325 p.o. daily. REVIEW OF SYSTEMS Negative except as in History of Present Illness. PHYSICAL EXAMINATION GENERAL: A middle-aged male lying in the bed comfortably, currently not in any distress. CURRENT VITAL SIGNS: Temperature 98.5, heart rate 90, respiratory rate 16, blood pressure 212/114, and oxygen saturation 100% on room air. HEENT: Pupils equally reactive to light and accommodation. Cataract left eye with visual loss on the left side. Extraocular muscles intact. NECK: Supple. No JVD, no thyromegaly. LUNGS: Clear to auscultation. HEART: S1 and S2, regular rate and rhythm. ABDOMEN: Soft, nontender, and nondistended. Bowel sounds positive. EXTREMITIES: Inspection normal. No cyanosis, no clubbing, and no edema. Right groin I and D site is with packing. NEUROLOGIC: Alert and oriented x3. Cranial nerves intact except he is blind in the left eye. Power is 5 over 5 on both sides. PSYCHIATRIC: Normal mood and affect. DIAGNOSTIC STUDIES LABORATORY: Glucose 342. White count 17, hemoglobin 12, hematocrit 38, and platelets 271,000. Chemistry with sodium of 132, potassium 3.3, chloride 99, CO2 of 26, glucose 356, BUN 15, and creatinine 1.2. ASSESSMENT AND PLAN 1. Right groin abscess, status post I and D in the emergency room. Follow up wound culture. Start patient on IV Zosyn and vancomycin. 2. Hyperglycemia secondary to noncompliance. His A1c was recently 12.1. He is supposed to be on Lantus 40 units and also (1)* before each meal. But when I asked him, he said he is using Lantus 10 Unit #: [id number] #: [id number] Patient: AVI HOPPER. It seems like he has noncompliance with medications. 3. History of old stroke with posterior cerebral circulation stenosis, status post left posterior cerebral infarct. 4. Blind in the left eye. 5. Nonobstructive coronary artery disease. 6. Hypertension with elevated blood pressure most likely secondary to noncompliance with medications. He does not know the doses. 7. History of hypertension. 8. Dyslipidemia. 9. Obstructive sleep apnea. 10. Deep venous thrombosis prophylaxis. Will place the patient on sequential compression devices. *Report faxed to Dr. Marie's office on 09/21/16 for medication verification. cd Dictated by Radha Wallace/amari TD: 09/20/2016 21:26 JOB #: [id number] HISTORY AND PHYSICAL Page 1 of 1 X X HISTORY AND PHYSICAL
--- NOTE | ~2016-09-20 | CT105 ---
[facility] A Service of [facility] RADIOLOGY TEXT RESULTS PATIENT: AVI HOPPER LOCATION: C2A 242-01 : [birth year] UNIT #: [id number] AGE: [address]: BE MATTA V SEX: M ORDER DR: [id number] [facility] [address] [place], [place] [address] [id number] I MR#: [id number] Acc #: [id number] NAME: AVI HOPPER : 1970 SEX: M STUDY DATE/TIME: 09/24/2016 12:23 UNIT: C2A ROOM: 242 STUDY DESCRIPTION: CT Pelvis W Cont Attending Physician: Be Matta M.D. Ordering Physician: Harlan Cash M.D. MEDICAL IMAGING REPORT This report is preliminary unless electronic signature is present EXAM CT pelvis with contrast HISTORY 46-year-old male with a large left groin abscess. Evaluate extent. TECHNIQUE Axial images performed through the pelvis following IV contrast. This CT exam was performed with one or more of the following radiation dose reduction techniques: automatic exposure control, adjustment of mA and/or kV according to patient size, and iterative reconstruction. FINDINGS Examination demonstrates defect within the skin and cutaneous tissues within the upper right groin measuring approximately 2.8 x 3.7 cm in transverse dimensions and about 5 cm cephalocaudal dimension. This appears to contain a small amount of debris or surgical packing. The defect measures approximately 3.5 cm in depth and up to 1.5 cm in greatest transverse dimensions. There is surrounding induration of the tissues and some skin thickening compatible with localized cellulitis. No drainable fluid collection or abscess is identified. A few reactive lymph nodes are seen in the right groin region. No extension into the scrotum or peroneal region is demonstrated. Internal pelvic structures, to include the appendix, unremarkable. Osseous structures, hip joints and lower lumbar spine unremarkable, except for mild posterior disc bulging L4-L5 with mild spinal stenosis and mild facet arthropathy. IMPRESSION Small right groin abscess with adjacent cellulitis and some reactive lymphadenopathy. The area of thickening and induration measures about 2.8 x 3.7 x 5 cm and appears to contain some debris or surgical packing but no STS. [facility] A Service of [facility] RADIOLOGY TEXT RESULTS PATIENT: AVI HOPPER LOCATION: A 242-01 : [birth year] UNIT #: [id number] AGE: [address]: BE MATTA V SEX: M ORDER DR: drainable fluid collection is identified. There is some enhancement of the wall of the defect or abscess, consistent with active inflammatory process. Dictated by... Sara Juarez M.D. THIS IS AN ELECTRONICALLY VERIFIED REPORT Sara Juarez M.D. at 09/26/2016 5:12 PM JANELLE/rafal TD: 09/24/2016 23:09 JOB #: [id number] MEDICAL IMAGING REPORT Page 1 of 1 COPY
--- NOTE | ~2016-09-20 | CO ---
Unit #: [id number] #: [id number] Patient: AVI HOPPER [id number] [address] [address] [id number] I MR#: [id number] NAME: AVI HOPPER ROOM: 242 Age: 46 Sex: M Admission Date: 09/20/2016 : 1970 Attending Physician: Cuate Hoyt M.D. Primary Care Physician: Primary Care Physician No Consultation Date: 09/24/2016 CONSULTATION REPORT HISTORY OF PRESENT ILLNESS Mr. Hopper is a 46-year-old gentleman with poorly-controlled diabetes, who developed an area of infection in the right inguinal and suprapubic region that was erythematous and tender. No fluctuance was described and he was put on Bactrim. Despite Bactrim, he continued to progress and he developed an abscess and came to the hospital. He had begun to spontaneously drain, and most of the purulent drainage has been expressed. CT scan did not show any intraperitoneal extension. However, on examining the wound, he still has a lot of infected exudate and tunneling with some nonviable tissue. The erythema has improved. He is afebrile. PAST MEDICAL HISTORY Insulin-dependent diabetes with neuropathy. Hemoglobin A1c is 12.1. He has as prescribed coronary artery disease with ejection fraction 40%. He has some mitral and tricuspid regurgitation, hypertension, hyperlipidemia, retinopathy of left eye, now with clinical blindness, previous stroke in the posterior cerebral circulation, obstructive sleep apnea. FAMILY HISTORY Coronary artery disease, stroke, diabetes, multiple carcinomas. ALLERGIES He is allergic to ESTEPHANIE inhibitors, oxycodone, methadone, and Percocet. MEDICATIONS Home medications are well documented. 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 PHYSICAL EXAMINATION VITAL SIGNS: Temperature is 98.5 and his vital signs are within normal limits. HEENT: Unremarkable except for his left eye, which is erythematous. He does have some exudate from the eye as well. CARDIAC: Regular rhythm. LUNGS: Clear. ABDOMEN: Soft. Down in the right inguinal region, he has about an 8 mm open area where the abscess cavity is spontaneously drained and the base is nonviable tissue and exudate. There is significant tunneling both laterally and medially. EXTREMITIES: No edema. NEUROLOGIC: Grossly intact except for his peripheral neuropathy. Unit #: [id number] #: [id number] Patient: AVI HOPPER DIAGNOSTIC STUDIES LABORATORY RESULTS: Other than the glucose is 323, his comprehensive metabolic panel was unremarkable. White count 9100, hemoglobin 11.6, platelets 285,000. Urinalysis was negative for infection. ASSESSMENT AND PLAN Right inguinal and suprapubic abscess that is partially spontaneously drained, but still grossly infected with exudate, nonviable tissue and significant tunneling. I discussed with the patient doing an operative debridement to remove the exudate and nonviable tissue to saucerize the wound to improve and simplify wound care and to eliminate the tunneling. The patient understands and agrees to proceed. Dictated by... Radha Dumas/zachary TD: 09/25/2016 01:29 JOB #: [id number] CONSULTATION REPORT Page 1 of 1 X Lb Clemente MD X CONSULTATION REPORT
--- NOTE | ~2016-09-20 | CO ---
Unit #: [id number] #: [id number] Patient: AVI HOPPER [id number] [address] [address] [id number] I MR#: [id number] NAME: AVI HOPPER ROOM: 242 Age: 46 Sex: M Admission Date: 09/20/2016 : 1970 Attending Physician: Cuate Hoyt M.D. Primary Care Physician: Primary Care Physician No Consultation Date: 09/24/2016 CONSULTATION REPORT REASON FOR CONSULTATION Groin abscess. HISTORY OF PRESENT ILLNESS This is a 46-year-old gentleman with a history of insulin-dependent diabetes with poor glycemic control and medical noncompliance, who was admitted with painful swelling of the right groin for few days along with mild chills. In the ER, he had an I and D, cultures are pending. He was started on vancomycin and Zosyn. ID was consulted for further evaluation. The patient is currently stable other than groin pain he has no other symptoms. He specifically denies any fevers, chills, abdominal pain, vomiting, or mental status changes. It appears the patient has received Bactrim DS as an outpatient without any improvement. PAST MEDICAL HISTORY Insulin-dependent diabetes with diabetic neuropathy, hyperglycemia due to noncompliance hemoglobin A1c of 12, history of coronary artery disease on medical therapy, hypertension, hyperlipidemia, legally blind, retinopathy, old stroke with posterior cerebral circulation stenosis, obstructive sleep apnea. PAST SURGICAL HISTORY Cardiac cath. 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 No history of alcohol, drug, or tobacco abuse. FAMILY HISTORY Coronary artery disease, diabetes, CVA. ALLERGIES ESTEPHANIE inhibitors, oxycodone, methadone, and Percocet. HOME MEDICATIONS Losartan, gabapentin, allopurinol, Lipitor, Glucophage, metoprolol, amitriptyline, amlodipine, hydralazine, aspirin. In the hospital, he is on vancomycin and Zosyn in addition to the other medications. SYSTEMIC REVIEW Groin swelling, pain, and redness with mild chills. No cough, abdominal pain, dysuria, vomiting, or mental status changes, etc. PHYSICAL EXAMINATION Unit #: [id number] #: [id number] Patient: AVI HOPPER GENERAL: Reveals a middle aged male, who is awake and alert, in no acute distress. VITAL SIGNS: Stable. Temperature is 98 and no fever was documented during this admission, heart rate is 80, respirations 18, blood pressure 130/70. HEENT: He is legally blind. Oral hygiene is poor. NECK: Supple. LUNGS: Clear to percussion and auscultation. HEART: Sounds normal. There are no murmurs. ABDOMEN: Grossly obese, soft, and nontender. There is no organomegaly or ascites. Bowel sounds normal. There is a moderate sized abscess in the right groin with tenderness, surrounding cellulitis, and some lymphadenopathy. Area of the abscess is packed, but I do not believe it had adequate drainage in the ER. NEUROLOGIC: Nonfocal. DIAGNOSTIC STUDIES LABORATORY RESULTS: Cultures of the blood and drainage are negative at this time. White count is 9, hemoglobin 11.6, platelets 285. BMP is unremarkable, glucose 246. Lactic acid 1. Urine culture, negative. IMPRESSION Right groin abscess extent is unknown since the patient is a diabetic with poor control. Underlying extensive infection should be excluded. I do not believe the patient has adequate incision and drainage in the emergency room. RECOMMENDATIONS We will order a CT scan of the pelvis to define the extent and depth of abscess. We will ask surgical colleagues to do proper I and D, if indicated. We will continue vancomycin and Zosyn for now. Pending culture results. Further recommendation will follow. Dictated by... Radha Pena/zachary TD: 09/26/2016 03:56 JOB #: [id number] CONSULTATION REPORT Page 1 of 1 X Harlan Cash MD CONSULTATION REPORT
--- NOTE | ~2016-09-20 | DS ---
Unit #: [id number] #: [id number] Patient: AVI HOPPER [id number] [address] [address] [id number] I MR#: [id number] NAME: AVI HOPPER ROOM: 242 Age: 46 Sex: M Admission Date: 09/20/2016 : 1970 Discharge Date: 09/28/2016 Attending Physician: Cuate Hoyt M.D. Primary Care Physician: Frances Primary Care Physician DISCHARGE SUMMARY PERTINENT HISTORY AND HOSPITAL COURSE The patient is a 46-year-old man who had presented with symptoms of redness and swelling over the right groin which has progressively increased. He had been on oral Bactrim for three days, which did not improve the swelling over his right groin area. During his admission the patient underwent incision and drainage by surgery, along with regular dressing changes. The patient was started on IV vancomycin and IV Zosyn during his admission. Wound cultures grew enterococcus which was sensitive to ampicillin. The patient will be discharged on Augmentin for seven more days. Also during his admission, the patient's diabetes mellitus was controlled with long-acting Levemir insulin and NovoLog insulin with meals. At discharge the patient is afebrile. Vitals are stable. No further drainage from the wound. Undergoing regular dressing changes. He will be discharged home with home health services. DISCHARGE MEDICATIONS 1. Amlodipine 10 mg p.o. daily. 2. Metoprolol 100 mg p.o. b.i.d. 3. Colace 200 mg p.o. daily. 4. MiraLAX 17 g p.o. daily p.r.n. constipation. 5. Lipitor 40 mg p.o. at bedtime. 6. Allopurinol 300 mg p.o. daily. 7. Aspirin 325 mg p.o. daily. 8. Hydralazine 100 mg p.o. t.i.d. 9. Losartan 100 mg p.o. daily. 10. Levemir insulin 30 units subcutaneous b.i.d. with meals. 11. NovoLog flex pen 20 units subcutaneous before meals. 12. Augmentin 875 mg p.o. b.i.d. for 7 days. 13. Lortab 5/325 mg 1-2 tablets p.o. q.6 h. p.r.n. DISCHARGE INSTRUCTIONS 1. Follow up with home health services for dressing changes. 2. Follow up with primary care physician. Dictated by... Radha Doe TD: 10/01/2016 11:15 Unit #: [id number] #: [id number] Patient: AVI HOPPER JOB #: [id number] DISCHARGE SUMMARY Page 1 of 1 X X DISCHARGE SUMMARY
--- NOTE | ~2016-09-20 | OR ---
Unit #: [id number] #: [id number] Patient: AVI HOPPER [id number] [address] [address] [id number] I MR#: [id number] NAME: AVI HOPPER ROOM: 242 Date of Procedure: 09/25/2016 Admission Date: 09/20/2016 Surgeon: Carloz Randle III, M.D. : 1970 Attending Physician: Cuate Hoyt M.D. Primary Care Physician: Primary Care Physician No OPERATIVE REPORT PREOPERATIVE DIAGNOSIS Right groin abscess wound. POSTOPERATIVE DIAGNOSIS Right groin abscess wound. PROCEDURE PERFORMED Sharp excisional debridement of skin and subcutaneous tissue. Right groin wound that measures approximately 2 x 3 cm. [employer]UT[employer]NT [employer] None. ANESTHESIA General endotracheal tube anesthesia. SPECIMEN Tissue to Pathology. INDICATIONS FOR PROCEDURE This is a 46-year-old gentleman, who presented with right groin abscess. It was lanced earlier with incomplete drainage. He is here today for further washout and debridement. DESCRIPTION OF PROCEDURE After consent was obtained, the patient was brought to the operating room and placed in the supine position. General anesthetic was administered. His right groin area was prepped and draped in standard surgical fashion. I made an elliptical incision around the groin wound, which was approximately 1 cm in length. It was right at the groin crease. I sharply excised this area with a scalpel to create a wound that was approximately 2 x 3 cm. I broke up all the loculated areas underneath and used hemostat to probe towards the mons pubis and down towards the scrotum to make sure there were no other loculated areas. I irrigated the wound and packed it with normal saline and wet-to-dry gauze. He tolerated procedure without any problems and returned to the recovery room in stable condition. Dictated by... Carloz Randle III, M.D. Unit #: [id number] #: [id number] Patient: AVI HOPPER VCL/modl TD: 09/27/2016 04:25 JOB #: [id number] OPERATIVE REPORT Page 1 of 1 X Carloz Randle III, MD PROCEDURE OPERATIVE NOTE
[~2016-09-20 16:18] MED LIST changes: +ALLOPURINOL300 MG PO; +AMITRIPTYLINE H75 MG PO; +AMLODIPINE BESY10 MG PO; +BAYER ASPIRIN325 M1 PO; +GABAPENTIN600 MG PO; +GLIMEPIRIDE2 MG PO; +HYDRALAZINE HC100 MG PO; +LANTUS SOL100 UNIT/1 SUBQ; +LIPITOR40 MG PO; +LOSARTAN POTAS100 MG PO; +METOPROLOL TAR100 MG PO; +NOVOLOG FL100 UNIT/1 SUBQ
[2016-09-20 18:32] LABS: BASOPHIL# 0.1 X10e3 (0-0.3); BASOPHIL% 0.5 % (0-2.5); EOSINOPHIL# 0.1 X10e3 (0-0.7); EOSINOPHIL% 0.4 % (0.0-7.0); HEMATOCRIT 38.4 % (38.0-50.0); HEMOGLOBIN 12.2 gm/dL (13.0-16.0); LYMPHOCYTE# 2.8 X10e3 (1.0-3.5); LYMPHOCYTE% 16.2 % (17.0-45.0); MEAN CELL VOLUME 88.1 FL (83-96); MEAN CORPUSCULAR HEMOGLOBIN 27.9 PG (28-34); MEAN CORPUSCULAR HGB CONC 31.7 g/dL (30-36); MEAN PLATELET VOLUME 9.9 FL (6.5-11.5); MONOCYTE# 1.5 X10e3 (0-1.0); MONOCYTE% 8.7 % (3.0-12.0); NEUTROPHIL# 12.6 X10e3 (1.5-7.1); NEUTROPHIL% 74.2 % (40-75); PLATELET COUNT 271 X10e3 (140-420); RED BLOOD COUNT 4.36 X10e (3.90-5.60); RED CELL DISTRIBUTION WIDTH 12.2 % (11.0-15.5)
[2016-09-20 18:33] LABS: DIFF IND YES
[2016-09-20 18:55] LABS: BUN/CREATININE RATIO 12.5; CALCIUM SERUM 8.7 mg/dL (8.4-10.2); CREATININE SERUM 1.2 mg/dL (0.6-1.4); GLOM FILT RATE Estimated 82.4 mL/min (>60); POTASSIUM 3.3 mmol/L (3.5-5.1)
[2016-09-20 18:58] LABS: PLATELET ESTIMATE NORMAL (NORMAL)
[2016-09-20 18:59] LABS: ANISOCYTOSIS SL
[2016-09-21 10:10] LABS: BASOPHIL# 0.1 X10e3 (0-0.3); BASOPHIL% 0.7 % (0-2.5); EOSINOPHIL# 0.2 X10e3 (0-0.7); EOSINOPHIL% 1.3 % (0.0-7.0); HEMATOCRIT 35.9 % (38.0-50.0); HEMOGLOBIN 11.3 gm/dL (13.0-16.0); LYMPHOCYTE% 21.9 % (17.0-45.0); MEAN CELL VOLUME 87.6 FL (83-96); MEAN CORPUSCULAR HEMOGLOBIN 27.5 PG (28-34); MEAN CORPUSCULAR HGB CONC 31.4 g/dL (30-36); MEAN PLATELET VOLUME 9.6 FL (6.5-11.5); MONOCYTE# 1.2 X10e3 (0-1.0); MONOCYTE% 8.9 % (3.0-12.0); NEUTROPHIL# 9.2 X10e3 (1.5-7.1); NEUTROPHIL% 67.2 % (40-75); PLATELET COUNT 231 X10e3 (140-420); RED BLOOD COUNT 4.09 X10e (3.90-5.60); RED CELL DISTRIBUTION WIDTH 12.2 % (11.0-15.5); WHITE BLOOD COUNT 13.6 X10e3 (4.0-10.5)
[2016-09-21 10:12] LABS: DIFF IND NO
[2016-09-21 10:46] LABS: BUN/CREATININE RATIO 11.11; CALCIUM SERUM 8.4 mg/dL (8.4-10.2); CREATININE SERUM 0.9 mg/dL (0.6-1.4); GLOM FILT RATE Estimated 116.6 mL/min (>60); POTASSIUM 3.8 mmol/L (3.5-5.1)
[2016-09-23 05:27] LABS: HEMATOCRIT 36.3 % (38.0-50.0); HEMOGLOBIN 11.6 gm/dL (13.0-16.0); MEAN CELL VOLUME 88.3 FL (83-96); MEAN CORPUSCULAR HEMOGLOBIN 28.3 PG (28-34); MEAN PLATELET VOLUME 9.8 FL (6.5-11.5); RED BLOOD COUNT 4.11 X10e (3.90-5.60); RED CELL DISTRIBUTION WIDTH 12.4 % (11.0-15.5); WHITE BLOOD COUNT 9.1 X10e3 (4.0-10.5)
[2016-09-23 06:05] LABS: ALBUMIN SERUM 2.7 g/dL (3.5-5.0); BILIRUBIN,TOTAL 0.5 mg/dL (0.2-2.0); BUN/CREATININE RATIO 6.66; CALCIUM SERUM 8.4 mg/dL (8.4-10.2); CREATININE SERUM 0.9 mg/dL (0.6-1.4); GLOM FILT RATE Estimated 116.6 mL/min (>60); POTASSIUM 3.7 mmol/L (3.5-5.1); PROTEIN TOTAL SERUM 7.8 g/dL (6.0-8.3)
[2016-09-25 06:06] LABS: HEMATOCRIT 33.1 % (38.0-50.0); HEMOGLOBIN 10.3 gm/dL (13.0-16.0); MEAN CELL VOLUME 89.2 FL (83-96); MEAN CORPUSCULAR HEMOGLOBIN 27.7 PG (28-34); MEAN CORPUSCULAR HGB CONC 31.1 g/dL (30-36); MEAN PLATELET VOLUME 9.4 FL (6.5-11.5); RED BLOOD COUNT 3.71 X10e (3.90-5.60); RED CELL DISTRIBUTION WIDTH 12.1 % (11.0-15.5)
[2016-09-25 06:57] LABS: CALCIUM SERUM 8.4 mg/dL (8.4-10.2); CREATININE SERUM 1.1 mg/dL (0.6-1.4); GLOM FILT RATE Estimated 91.5 mL/min (>60); POTASSIUM 3.9 mmol/L (3.5-5.1)
[2016-09-27 06:09] LABS: BUN/CREATININE RATIO 9.16; CALCIUM SERUM 8.7 mg/dL (8.4-10.2); CREATININE SERUM 1.2 mg/dL (0.6-1.4); GLOM FILT RATE Estimated 82.4 mL/min (>60); POTASSIUM 3.9 mmol/L (3.5-5.1)
[2016-09-28] MEDS ORDERED: LORTAB 5-325 M1 EACH PO (17:35)
[2016-09-28] MEDS ORDERED: AUGMENTIN PO (17:35)
[2016-09-28] MEDS ORDERED: DOCUSATE SODIU100 MG PO (17:47)
[2016-09-28] MEDS ORDERED: MIRALAX17 GM PO (17:47)
== END 2016-09-28 18:17 | disposition home health service (06) | DRG 572 ==
LOC: CED 16:18 → C2A 20:15 → CEDOF 20:15 → CED 20:31 → C2A 21:34 → CEDOF 21:34 → C2A 09-21 09:39
PROVIDERS: Emergency Medicine; Internal Medicine; Internal Medicine Endocrinology, Diabetes & Metabolism; Specialist; Surgery
PROC: 05H633Z Insertion of Infusion Device into Left Subclavian Vein, Percutaneous Approach (ICD-10-PCS; 2016-09-22)
PROC: B547ZZA Ultrasonography of Left Subclavian Vein, Guidance (ICD-10-PCS; 2016-09-22)
PROC: 0JBC0ZZ Excision of Pelvic Region Subcutaneous Tissue and Fascia, Open Approach (ICD-10-PCS; principal; 2016-09-25 14:00)
DX: L02.214 Cutaneous abscess of groin (principal); E11.42 Type 2 diabetes mellitus with diabetic polyneuropathy; Z79.4 Long term (current) use of insulin; I25.10 Atherosclerotic heart disease of native coronary artery without angina pectoris; G47.33 Obstructive sleep apnea (adult) (pediatric); E78.5 Hyperlipidemia, unspecified; I10 Essential (primary) hypertension; E11.65 Type 2 diabetes mellitus with hyperglycemia; E11.319 Type 2 diabetes mellitus with unspecified diabetic retinopathy without macular edema; Z91.19 Patient's noncompliance with other medical treatment and regimen; Z86.73 Personal history of transient ischemic attack (TIA), and cerebral infarction without residual deficits; I08.1 Rheumatic disorders of both mitral and tricuspid valves; Z79.82 Long term (current) use of aspirin; Z91.14 Patient's other noncompliance with medication regimen; L03.314 Cellulitis of groin; B95.2 Enterococcus as the cause of diseases classified elsewhere
CPT/HCPCS: 36415; 72193; 80048; 80053; 80202; 82947; 83605; 85025; 85027; 87040; 87070; 87186; 87205; 88304; 94760; 94761; 96374; 99285; J0360; J1170; J1815; J2250; J2270; J2543; J3010; J3370; Q9967